=== PATIENT | female | born 1945 | race Caucasian/White ===

== ENCOUNTER → 2018-01-01 | Outpatient (CLI) | payer MEDICARE, BC ==
[~2018-01-01] MED LIST: BACTRIM DS 8001 TAB PO; BENICAR40 MG PO; LORTAB 5/500 501 TAB PO; PYRIDIUM 100MG100 MG PO
== END ==
LOC: MC.RAD 08:00
DX: Z12.31 Encounter for screening mammogram for malignant neoplasm of breast (principal)

== ENCOUNTER → 2019-12-09 | Outpatient (CLI) | payer MEDICARE, BC | LOC: MC.RAD 08:45 | DX: Z12.31 Encounter for screening mammogram for malignant neoplasm of breast (principal) ==

== ENCOUNTER 2021-01-03 14:44 | Outpatient (CLI) | payer MEDICARE, BC ==
[~2021-01-03] VITALS: Ht 162.6 cm; Wt 93.1 kg
[2021-01-03 15:19] VITALS: BP 113/72; PULSE 75; TEMP 98.5
[2021-01-03] MEDS ORDERED: COZAAR 50MG50 MG/TAB PO (15:21)
[2021-01-03] MEDS ORDERED: VITAMIN D3400 I1 PO (15:21)
[2021-01-03] MEDS ORDERED: HCTZ12.5TAB PO (15:21)
[2021-01-03] MEDS ORDERED: ASPIRIN 81M81 MG/TA2 PO (15:22)
[2021-01-03] MEDS ORDERED: INVIGOFLEX D1500 MG PO (15:22)
== END 2021-01-03 15:23 ==
LOC: EUO 14:44
DX: M81.0 Age-related osteoporosis without current pathological fracture (principal)
CPT/HCPCS: J0897

== ENCOUNTER → 2021-01-04 | Outpatient (CLI) | payer MEDICARE, BC ==
[~2021-01-04] MED LIST changes: +ASPIRIN 81M81 MG/TA2 PO; +COZAAR 50MG50 MG/TAB PO; +HCTZ12.5TAB PO; +INVIGOFLEX D1500 MG PO; +VITAMIN D3400 I1 PO
== END ==
LOC: MC.RAD 09:10
DX: Z12.31 Encounter for screening mammogram for malignant neoplasm of breast (principal)

== ENCOUNTER 2021-07-04 14:36 | Outpatient (CLI) | payer MEDICARE, BC ==
[~2021-07-04] VITALS: Ht 162.6 cm; Wt 93.4 kg
[2021-07-04 15:00] VITALS: BP 123/69; PULSE 70; TEMP 98.2
== END 2021-07-04 17:25 ==
LOC: EUO 14:36
DX: M81.0 Age-related osteoporosis without current pathological fracture (principal)
CPT/HCPCS: J0897